=== PATIENT | female | born 1980 | race African-American/Black ===

== ENCOUNTER 2023-07-21 23:56 | Emergency (ER) | payer OTHER ==
[~2023-07-21] VITALS: Ht 165.1 cm; Wt 90.7 kg
[2023-07-22] MEDS ORDERED: TRAMADOL HCL50 MG PO (00:20)
[2023-07-22] MEDS ORDERED: PREDNISONE20 M1 PO (01:30)
== END 2023-07-22 01:40 | disposition home or self-care (01) ==
LOC: ED 23:56
DX: M85.642 Other cyst of bone, left hand (principal); M25.512 Pain in left shoulder